=== PATIENT | male | born 1950 | race Caucasian/White ===

== ENCOUNTER 2021-11-18 15:21 | Emergency (ER) | payer MEDICARE, OTHER ==
[2021-11-18] MEDS ORDERED: Sodium Chloride 0.9% 1,000 ML IV ONE ×2 (15:47→15:49)
[2021-11-18] MEDS ORDERED: Ondansetron 4 MG/2 ML SDV IVPUSH ONE (15:47)
[2021-11-18] MEDS ORDERED: HYDROmorphone 2 MG/ML SDV IVPUSH ONE (15:48)
[2021-11-18] MEDS ORDERED: Ketorolac 30 MG/ML SDV IVPUSH ONE (16:14)
[2021-11-18] MEDS ORDERED: Acetaminophen 500 MG Tab PO ONE (16:36)
[2021-11-18] MEDS ORDERED: Metoclopramide 10 MG/2 ML SDV IVPUSH ONE (16:36)
[2021-11-18] MEDS ORDERED: Iopamidol 755 Mg/ML 100 ML Bottle IV ONE (17:07)
[2021-11-18] MEDS ORDERED: metroNIDAZOLE 500 MG Tab PO ONE (18:58)
[2021-11-18] MEDS ORDERED: Ciprofloxacin 500 MG Tab PO ONE (18:59)
== END 2021-11-18 19:37 | disposition home or self-care (01) ==
LOC: FB.ED 15:21
DX: N17.9 Acute kidney failure, unspecified (principal); N18.9 Chronic kidney disease, unspecified; L08.9 Local infection of the skin and subcutaneous tissue, unspecified; R79.82 Elevated C-reactive protein (CRP); D72.829 Elevated white blood cell count, unspecified; R74.8 Abnormal levels of other serum enzymes; Z86.16 Personal history of COVID-19; Z79.899 Other long term (current) drug therapy; Z20.822 Contact with and (suspected) exposure to COVID-19
CPT/HCPCS: 36415; 74177; 80053; 81001; 83690; 85025; 86140; 96361; 96374; 99283; 99284-25; A9270-GY; J1885; J7030; Q9967; U0002

== ENCOUNTER 2021-12-07 09:40 | Emergency (ER) | payer MEDICARE, OTHER ==
[2021-12-07] MEDS ORDERED: Acetaminophen/HYDROcodone 325-7.5 MG Tab PO STA (10:50)
[2021-12-07] MEDS ORDERED: Sodium Chloride 0.9% 500 ML IV ONE (10:51)
[2021-12-07] MEDS ORDERED: Sodium Chloride 0.9% 1,000 ML IV ONE (10:53)
[2021-12-07] MEDS ORDERED: Acetaminophen/HYDROcodone 325-5 MG Tab PO ONE (11:40)
== END 2021-12-07 12:12 | disposition home or self-care (01) ==
LOC: FB.ED 09:40
DX: K57.32 Diverticulitis of large intestine without perforation or abscess without bleeding (principal); K59.00 Constipation, unspecified; E86.0 Dehydration; Z79.899 Other long term (current) drug therapy; Z79.84 Long term (current) use of oral hypoglycemic drugs
CPT/HCPCS: 80053; 81001; 85025; 86140; 96360; 99284; A9270; J7030; 99283

== ENCOUNTER 2021-12-31 06:20 | Day surgery (SDC) | payer MEDICARE, OTHER ==
[~2021-12-31 06:20] MED LIST: Sodium Chloride 0.9% 10 ML Syringe FLUSH PRN
[2021-12-31] MEDS ORDERED: Midazolam 1 MG/ML 2 ML SDV IV ONE (06:21)
[2021-12-31] MEDS ORDERED: Propofol 200 MG/20 ML SDV IV ONE (06:21)
[2021-12-31] MEDS: Lactated Ringers 1,000 ML IV SCH (06:53)
[2022-01-01 22:11] LABS: ADENOVIRUS F 40/41 Not Detected (Not Detected); ASTROVIRUS Not Detected (Not Detected); C DIFFICILE TOXIN A/B Not Detected (Not Detected); CAMPYLOBACTER Not Detected (Not Detected); CRYPTOSPORIDIUM Not Detected (Not Detected); CYCLOSPORA CAYETANENSIS Not Detected (Not Detected); ENTAMOEBA HISTOLYTICA Not Detected (Not Detected); ENTEROAGGREGATIVE E COLI Not Detected (Not Detected); ENTEROPATHOGENIC E COLI Not Detected (Not Detected); ENTEROTOXIGENIC E COLI Not Detected (Not Detected); GIARDIA LAMBLIA Not Detected (Not Detected); NOROVIRUS GI/GII Not Detected (Not Detected); PLESIOMONAS SHIGELLOIDES Not Detected (Not Detected); ROTAVIRUS A Not Detected (Not Detected); SALMONELLA Not Detected (Not Detected); SAPOVIRUS Not Detected (Not Detected); SHIGA-TOXIN-PRODUCING E COLI Not Detected (Not Detected); SHIGELLA/ENTEROINVASIVE E COLI Not Detected (Not Detected); VIBRIO Not Detected (Not Detected); VIBRIO CHOLERAE Not Detected (Not Detected); YERSINIA ENTEROCOLITICA Not Detected (Not Detected)
== END 2021-12-31 09:02 | disposition home or self-care (01) ==
LOC: FB.SDS 06:20
PROVIDERS: ATTEND Surgery
DX: K52.9 Noninfective gastroenteritis and colitis, unspecified (principal); K63.89 Other specified diseases of intestine; K62.89 Other specified diseases of anus and rectum; K42.9 Umbilical hernia without obstruction or gangrene; I25.10 Atherosclerotic heart disease of native coronary artery without angina pectoris; E11.9 Type 2 diabetes mellitus without complications; E78.5 Hyperlipidemia, unspecified; I10 Essential (primary) hypertension; E66.9 Obesity, unspecified; Z98.890 Other specified postprocedural states; Z87.891 Personal history of nicotine dependence; Z79.899 Other long term (current) drug therapy; Z79.82 Long term (current) use of aspirin; Z68.30 Body mass index [BMI] 30.0-30.9, adult
CPT/HCPCS: 00811; 45380; 82947; 87507; 88305; 89055; J2250; J2704; J7120; 87177; 87209

== ENCOUNTER 2022-01-26 07:39 | Day surgery (SDC) | payer MEDICARE, OTHER ==
[2022-01-26] MEDS ORDERED: Propofol 200 MG/20 ML SDV IV ONE (07:40)
[2022-01-26] MEDS ORDERED: Lidocaine 2% 100 MG/5 ML Syringe IVPUSH ONE (07:40)
[2022-01-26] MEDS ORDERED: Lactated Ringers 1,000 ML IV SCH (07:45)
[2022-01-26] MEDS ORDERED: Sodium Chloride 0.9% 10 ML Syringe FLUSH PRN (07:45)
== END 2022-01-26 10:32 | disposition home or self-care (01) ==
LOC: FB.SDS 07:39
PROVIDERS: ATTEND Surgery
DX: K29.50 Unspecified chronic gastritis without bleeding (principal); K31.9 Disease of stomach and duodenum, unspecified; K63.5 Polyp of colon; K25.9 Gastric ulcer, unspecified as acute or chronic, without hemorrhage or perforation; K50.10 Crohn's disease of large intestine without complications; I10 Essential (primary) hypertension; E11.9 Type 2 diabetes mellitus without complications; E78.5 Hyperlipidemia, unspecified; E66.9 Obesity, unspecified; D64.9 Anemia, unspecified; I25.10 Atherosclerotic heart disease of native coronary artery without angina pectoris; Z79.899 Other long term (current) drug therapy; Z79.82 Long term (current) use of aspirin; Z79.84 Long term (current) use of oral hypoglycemic drugs; Z79.02 Long term (current) use of antithrombotics/antiplatelets; Z87.891 Personal history of nicotine dependence; Z98.890 Other specified postprocedural states; Z68.29 Body mass index [BMI] 29.0-29.9, adult
CPT/HCPCS: 00731; 43239; 82947; 88305; 88342; J2704; J7120

== ENCOUNTER 2022-03-06 14:03 | Emergency (ER) | payer MEDICARE, OTHER ==
[2022-03-06] MEDS ORDERED: Acetaminophen 500 MG Tab PO ONE (14:29)
[2022-03-06] MEDS ORDERED: Ondansetron 4 MG Tab.DIS PO ONE (14:42)
[2022-03-06 14:58] LABS: ESTIMATED GFR 35 mL/min (>60)
[2022-03-06] MEDS ORDERED: Lactated Ringers 1,000 ML IV ONE ×2 (15:04→16:02)
== END 2022-03-06 18:13 | disposition home or self-care (01) ==
LOC: FB.ED 14:03
DX: K63.89 Other specified diseases of intestine (principal); E86.0 Dehydration; E11.22 Type 2 diabetes mellitus with diabetic chronic kidney disease; I12.9 Hypertensive chronic kidney disease with stage 1 through stage 4 chronic kidney disease, or unspecified chronic kidney disease; N18.9 Chronic kidney disease, unspecified; D63.1 Anemia in chronic kidney disease; I25.10 Atherosclerotic heart disease of native coronary artery without angina pectoris; E78.00 Pure hypercholesterolemia, unspecified; E66.9 Obesity, unspecified; Z68.26 Body mass index [BMI] 26.0-26.9, adult; Z79.899 Other long term (current) drug therapy; Z79.84 Long term (current) use of oral hypoglycemic drugs
CPT/HCPCS: 36415; 80053; 81001; 85027; 86140; 96360; 96361; 99284; A9270; J7120; Q0162